=== PATIENT | female | born 1990 | race Caucasian/White ===

== ENCOUNTER 2016-08-25 16:41 | Emergency (ER) | payer OTHER ==
[2016-08-25 16:56] VITALS: BP 129/75; PULSE 82; TEMP 98.7; BMI 28.8
--- NOTE | 2016-08-25 16:59 | PDOC ---
History of Present Illness - General Chief Complaint: Cold Symptoms Stated Complaint: BRONCHITIS/EMPLOYEE Time Seen by Provider: 08/25/16 16:58 History Source: Patient Exam Limitations: No Limitations - History of Present Illness Initial Comments: 08/25/16 16:59 CHIEF COMPLAINT: Cough HISTORY OF PRESENT ILLNESS: This is a 26-year-old female with a history of PCOS , Trudy's thyroiditis, and reactive airway with URIs who presents complaining of 4 days of low-grade fevers/chills, throat pain, bodyaches/malaise , and cough productive of green sputum. She was prescribed moxifloxacin and prednisone on Tuesday, but has not shown any improvement. She has not travelled recently. She has had many sick contacts at work. She received the flu vaccine in May. OCP: Yes Smoking: Quit 3 years ago Vital signs on arrival are all within normal limits. PCP is Dr. Dotson. REVIEW OF SYSTEMS: GENERAL/CONSTITUTIONAL: Low grade fever/chills, bodyaches, malaise. No weakness. No weight change. HEAD, EYES, EARS, NOSE AND THROAT: Throat pain/painful swallowing. No ear pain. CARDIOVASCULAR: No chest pain or palpitations. RESPIRATORY: See HPI. GASTROINTESTINAL: No nausea, vomiting, diarrhea or constipation. GENITOURINARY: No dysuria, frequency, or change in urination. MUSCULOSKELETAL: No joint or muscle swelling or pain. No neck or back pain. SKIN: No rash or easy bruising. NEUROLOGIC: No headache, vertigo, loss of consciousness, or loss of sensation. HEMATOLOGIC/LYMPHATIC: No anemia, easy bleeding, or history of blood clots. ALLERGIC/IMMUNOLOGIC: No hives or skin allergy. No latex allergy. PHYSICAL EXAM: GENERAL: The patient is awake, alert, and fully oriented, in no acute distress. ENT: Pupils equal, round and reactive to light, extraocular movements intact, sclera anicteric, conjunctiva clear. Neck supple. LUNGS: Clear to auscultation bilaterally. Normal excursion. No respiratory distress or use of accessory muscles. CV: RRR, S1/S2, no MRG. Cap refill < 2 sec. ABDOMEN: Soft, non-distended, non-tender. EXTREMITIES: Normal range of motion, no edema. NEUROLOGICAL: Normal speech, normal gait. CN II-XII grossly intact. PSYCH: Normal mood, normal affect. SKIN: Warm, dry, normal turgor, no rashes or lesions noted. Past History - Past Medical History Allergies/Adverse Reactions: Allergies Allergy/AdvReac Type Severity Reaction Status Date / Time No Known Allergies Allergy Verified 08/25/16 16:56 Home Medications: Ambulatory Orders Cephalexin Monohydrate [Keflex -] 500 mg PO Q6H #28 capsule 08/04/15 Metoclopramide HCl [Reglan -] 10 mg PO TID #21 tablet 08/04/15 Anemia: No Asthma: No Cancer: No Thyroid Disease: Yes (Trudy's thyroiditis) Other medical history: PCOS/ - Surgical History Appendectomy: No - Family Disease History Family Disease History: Diabetes: Grandparents (mat uncle/GF colon, mat GF), [place] : Grandparents - Reproductive History Therapeutic (s) & number: No - Immunization History Immunization Up to Date: Yes - Psycho/Social/Smoking Cessation Hx Anxiety: No Suicidal Ideation: No Smoking Status: Yes Smoking History: Former smoker Have you smoked in the past 12 months: No Number of Cigarettes Smoked Daily: 0 If you are a former smoker, when did you quit?: 3 YRS Cigars Per Day: 0 Information on smoking cessation initiated: No Hx Alcohol Use: Yes (SOCIAL) Drug/Substance Use Hx: No Substance Use Type: None Hx Substance Use Treatment: No *Physical Exam - Vital Signs Last Vital Signs Temp Pulse Resp BP Pulse Ox 98.7 F 82 20 129/75 100 08/25/16 16:53 08/25/16 16:53 08/25/16 16:53 08/25/16 16:53 08/25/16 16:53 ED Treatment Course - RADIOLOGY Radiology Studies Ordered: Category Date Time Status CHEST PA & LAT [RAD] Stat Radiology 08/25/16 16:58 Ordered Medical Decision Making - Medical Decision Making 08/25/16 17:36 A/P: 26 year female with productive cough and low grade fevers, not improving on 4th day of moxifloxacin/prednisone. 1. CXR 2. Influenza swab 3. DuoNeb 4. Reassess 08/25/16 17:53 Flu neg Xray wet read: no infiltrate *DC/Admit/Observation/Transfer Diagnosis at time of Disposition: Bronchitis - Discharge Dispostion Disposition: HOME Condition at time of disposition: Stable Admit: No - Referrals Referrals: Francesco Dotson MD [Primary Care Provider] - 1 week - Patient Instructions Printed Discharge Instructions: DI for Acute Bronchitis Additional Instructions: You were seen today for cough and fevers/chills Your influenza swab was negative Preliminary read of your xray is normal; you will be contacted if the official read is different -Continue moxifloxacin and prednisone as previously prescribed -Add albuterol inhaler and take cough syrup as prescribed when you are not driving or working -Return here for difficulty breathing or any other concerning symptoms - Post Discharge Activity Work/School Note: Back to Work
[2016-08-25] MEDS ORDERED: ALBUTEROL SO4 2.5/IPRATROPIUM 0.5 INH SOL 3 ML VIAL.NEB. NEB ONE (17:05)
== END 2016-08-25 18:51 | disposition home or self-care (01) ==
LOC: JERFT 16:41
DX: J40 Bronchitis, not specified as acute or chronic (principal); E28.2 Polycystic ovarian syndrome; E06.3 Autoimmune thyroiditis
CPT/HCPCS: 71020-TC; 87804; 99281-25

== ENCOUNTER 2016-11-06 23:17 | Emergency (ER) | payer OTHER ==
[2016-11-06 23:29] VITALS: BP 119/83; PULSE 93; TEMP 98.1; BMI 29.2
[2016-11-06] MEDS ORDERED: KETOROLAC TROMETHAMINE 30 MG/1 ML VIAL IVPUSH ONE (23:43)
[2016-11-06] MEDS ORDERED: KETOROLAC TROMETHAMINE 30 MG/1 ML VIAL ONE (23:58)
[2016-11-07 00:03] LABS: BASOPHIL 0.8 % (0-2.0); EOSINOPHIL 0.7 % (0-4.5); MCH 27.9 pg (25.7-33.7); MCHC 33.6 g/dl (32.0-36.0); MEAN CELL VOLUME 83.1 fl (80-96); MEAN PLT VOLUME 7.9 fl (7.5-11.1); NEUTROPHILS 68.1 % (42.8-82.8); PLATELET COUNT 296 K/MM3 (134-434); RDW 13.8 % (11.6-15.6); WHITE BLOOD COUNT 6.1 K/mm3 (4.0-10.0)
[2016-11-07] MEDS ORDERED: ONDANSETRON 4 MG/2 ML VIAL IVPB ONE (00:05)
[2016-11-07 00:06] LABS: URINE APPEARANCE CLEAR; URINE BILIRUBIN NEGATIVE (NEGATIVE); URINE BLOOD NEGATIVE (NEGATIVE); URINE COLOR YELLOW; URINE GLUCOSE (UA) NEGATIVE (NEGATIVE); URINE KETONE NEGATIVE (NEGATIVE); URINE LEUK ESTERASE NEGATIVE (NEGATIVE); URINE NITRITE NEGATIVE (NEGATIVE); URINE PROTEIN NEGATIVE (NEGATIVE); URINE UROBILINOGEN NEGATIVE E.U./dl (0.2-1.0)
[2016-11-07] MEDS ORDERED: ONDANSETRON 4 MG/2 ML VIAL ONE (00:22)
[2016-11-07 00:30] LABS: ALBUMIN 4.3 g/dl (3.4-5.0); ALK PHOS 63 U/L (45-117); ANION GAP 8 (8-16); BILIRUBIN,TOTAL 0.3 mg/dL (0.2-1.0); CALCIUM 9.2 mg/dL (8.5-10.1); CO2 30 mmol/L (21-32); CREATININE 0.9 mg/dL (0.55-1.02); GLUCOSE,RANDOM 91 mg/dL (74-106); SGOT/AST 20 U/L (15-37); SGPT/ALT 29 U/L (12-78); TOT PROT 7.5 g/dl (6.4-8.2)
--- NOTE | 2016-11-07 00:49 | PDOC ---
History of Present Illness - General Chief Complaint: Pain Stated Complaint: LWR ABD PAIN Time Seen by Provider: 11/06/16 23:24 History Source: Patient Exam Limitations: No Limitations - History of Present Illness Initial Comments: 11/07/16 00:44 Patient is a 26-year-old female with history of PCO S who presents with atraumatic, severe right lower quadrant and right lower pelvic pain of several hours duration, radiating to the right flank, waxing waning severity, sharp, not associated with food. Patient complains of mild nausea, denies vomiting/ diarrhea/melena/bright red blood per rectum/dysuria/vaginal bleeding. Patient denies previous history of similar symptoms. Patient denies fever or chills. There is no history travel. REVIEW OF SYSTEMS CONSTITUTIONAL: No fever, no chills, no fatigue EYES: No visual changes ENT: No ear pain, no sore throat CARDIOVASCULAR: No chest pain, no palpitations RESPIRATORY: No cough, no SOB GI: + abdominal pain, + nausea, no vomiting, no constipation, no diarrhea GENITOURINARY: No dysuria, no frequency, no hematuria MUSKULOSKELETAL: No backpain, no joint pain, no myalgias SKIN: No rash NEURO: No headache EXAMINATION CONSTITUTIONAL: Well-appearing; well-nourished; in no apparent distress HEAD: Normocephalic; atraumatic EYES: PERRL; EOM intact ENMT: External appears normal; normal oropharynx NECK: Supple; non-tender; no cervical lymphadenopathy CARD: Normal S1, S2; no murmurs, rubs, or gallops RESP: Normal chest excursion with respiration; breath sounds clear and equal bilaterally; no wheezes, rhonchi, or rales ABD: Soft, non-distended; + mild right lower pelvic tender to deep palpation; no palpable organomegaly, no palpable hernias; no CVA tenderness bilaterally. EXT: Normal ROM in all four extremities; non-tender to palpation; distal pulses intact SKIN: Warm, dry, no rash NEURO: No focal neurological deficiencies. Past History - Past Medical History Allergies/Adverse Reactions: Allergies Allergy/AdvReac Type Severity Reaction Status Date / Time No Known Allergies Allergy Verified 11/06/16 23:26 Anemia: No Asthma: No Cancer: No Thyroid Disease: Yes (Trudy's thyroiditis) - Surgical History Appendectomy: No - Family Disease History Family Disease History: Diabetes: Grandparents (mat uncle/GF colon, mat GF), [place] : Grandparents - Reproductive History Is Patient Now?: No Therapeutic (s) & number: No - Immunization History Immunization Up to Date: Yes - Psycho/Social/Smoking Cessation Hx Anxiety: No Suicidal Ideation: No Smoking Status: Yes Smoking History: Former smoker Have you smoked in the past 12 months: No Number of Cigarettes Smoked Daily: 0 If you are a former smoker, when did you quit?: 3 years Cigars Per Day: 0 Information on smoking cessation initiated: No Hx Alcohol Use: Yes (SOCIAL) Drug/Substance Use Hx: No Substance Use Type: None Hx Substance Use Treatment: No *Physical Exam - Vital Signs Last Vital Signs Temp Pulse Resp BP Pulse Ox 98.1 F 93 H 18 119/83 100 11/06/16 23:18 11/06/16 23:18 11/06/16 23:18 11/06/16 23:18 11/06/16 23:18 ED Treatment Course - LABORATORY CBC & Chemistry Diagram: 11/06/16 23:43 11/06/16 23:50 - ADDITIONAL ORDERS Additional order review: Laboratory Results 11/06/16 11/06/16 23:50 23:50 Sodium 142 Potassium 4.3 Chloride 104 Carbon Dioxide 30 Anion Gap 8 BUN 11 D Creatinine 0.9 Creat Clearance w eGFR > 60 Random Glucose 91 Calcium 9.2 Total Bilirubin 0.3 D AST 20 ALT 29 Alkaline Phosphatase 63 D Total Protein 7.5 Albumin 4.3 D Urine Color Yellow Urine Appearance Clear Urine pH 7.0 D Ur Specific [place] 1.019 Urine Protein Negative Urine Glucose (UA) Negative Urine Ketones Negative Urine Blood Negative Urine Nitrite Negative Urine Bilirubin Negative Urine Urobilinogen Negative Ur Leukocyte Esterase Negative Urine HCG, Qual Negative 11/06/16 23:43 RBC 4.96 MCV 83.1 MCHC 33.6 RDW 13.8 MPV 7.9 Neutrophils % 68.1 Lymphocytes % 23.9 D Monocytes % 6.5 Eosinophils % 0.7 Basophils % 0.8 - RADIOLOGY Radiology Studies Ordered: Category Date Time Status TRANSVAGINAL ULTRASOUND US [US] Stat Ultrasound 11/07/16 23:44 Ordered - Medications Given in the ED: ED Medications Discontinued Medications Generic Name Dose Route Start Last Admin Trade Name Freq PRN Reason Stop Dose Admin Ketorolac Tromethamine 30 mg 11/06/16 23:43 11/07/16 00:00 Toradol Injection - IVPUSH 11/06/16 23:44 30 mg ONCE ONE Administration Ondansetron HCl 8 mg 11/07/16 00:05 11/07/16 00:24 Zofran Injection IVPB 11/07/16 00:06 8 mg ONCE ONE Administration Medical Decision Making - Medical Decision Making 11/07/16 01:31 Patient is a 26-year-old female who presents with atraumatic right lower pelvic pain. In the ER, patient is awake and alert, with right lower pelvic pain on deep palpation. CBC/CMP/UA within normal limit. Patient is UCG negative. Transvaginal ultrasound shows an anterior mural fibroids and a small left ovarian cyst. There is no evidence of torsion bilaterally. I do not suspect appendicitis at this time. Patient received Toradol IV and reports significant improvement in level of her pain. Patient is able to tolerate by mouth. 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 *DC/Admit/Observation/Transfer Diagnosis at time of Disposition: Cyst of left ovary Abdominal pain Qualifiers: Abdominal location: right lower quadrant Qualified Code(s): R10.31 - Right lower quadrant pain Uterine leiomyoma Qualifiers: Uterine leiomyoma location: intramural Qualified Code(s): D25.1 - Intramural leiomyoma of uterus - Discharge Dispostion Disposition: HOME Condition at time of disposition: Stable - Referrals Referrals: Francesco Dotson MD [Primary Care Provider] - Nilson Arrington MD [Staff Physician] - - Patient Instructions Printed Discharge Instructions: DI for Abdominal Pain-Adult, DI for Ovarian Cyst
== END 2016-11-07 01:42 | disposition home or self-care (01) ==
LOC: JER 23:17
PROC: 3E0333Z Introduction of Anti-inflammatory into Peripheral Vein, Percutaneous Approach (ICD-10-PCS; principal; 2016-11-06)
PROC: 3E033GC Introduction of Other Therapeutic Substance into Peripheral Vein, Percutaneous Approach (ICD-10-PCS; 2016-11-06)
DX: N83.292 Other ovarian cyst, left side (principal); D25.9 Leiomyoma of uterus, unspecified
CPT/HCPCS: 36415; 76830-TC; 80053; 81003; 84703; 85025; 87086; 99282-25

== ENCOUNTER 2016-11-30 03:10 | Emergency (ER) | payer OTHER ==
[2016-11-30 04:55] VITALS: BP 116/84; PULSE 75; TEMP 97.2; BMI 19.4
--- NOTE | 2016-11-30 04:56 | PDOC ---
Post Exposure HPI - General Chief Complaint: Blood/Body Fluid Exposure SJR Stated Complaint: EXPOSURE-EMPLOYEE Time Seen by Provider: 11/30/16 04:49 History Source: Patient Exam Limitations: No Limitations - History of Present Illness Timing: just prior to arrival Exposed Location: Right: Hand(s) Assessing Significant Risk PEP: Yes Blood Past History - Travel Traveled outside of the country in the last 30 days: No Close contact w/someone who was outside of country & ill: No - Past Medical History Allergies/Adverse Reactions: Allergies No Known Allergies Allergy (Verified 11/30/16 04:55) Home Medications: Ambulatory Orders Liraglutide [Saxenda] 2.4 mg IM DAILY 11/07/16 Phentermine HCl [Adipex-P] 37.5 mg PO DAILY 11/07/16 Surgical History: Yes: Noncontributory - Reproductive History LMP: 12/26/11 - Immunization History Immunizations Up to Date: Yes - Social History Smoking History: Yes Smoking Status: Never smoked Number of Ciarettes Per Day: 0 Cigars Per Day: 0 Alcohol Use: none Drug Use: none Review of Systems - Review of Systems Able to Perform ROS?: Yes Comments:: 11/30/16 05:21 CONSTITUTIONAL: Absent: fever, chills, diaphoresis, generalized weakness, malaise, loss of appetite HEENT: Absent: rhinorrhea, nasal congestion, throat pain, throat swelling, difficulty swallowing, mouth swelling, ear pain, eye pain, visual Changes CARDIOVASCULAR: Absent: chest pain, loss of consciousness, palpitations, irregular heart rate, peripheral edema RESPIRATORY: Absent: cough, shortness of breath, dyspnea with exertion, orthopnea, wheezing, stridor, hemoptysis GASTROINTESTINAL: Absent: abdominal pain, abdominal distension, nausea, vomiting, diarrhea, constipation, melena, hematochezia GENITOURINARY: Absent: dysuria, frequency, urgency, hesitancy, hematuria, flank pain, genital pain MUSCULOSKELETAL: Absent: myalgia, arthralgia, joint swelling SKIN: Absent: rash, itching, pallor HEMATOLOGIC/IMMUNOLOGIC: Absent: easy bleeding, easy bruising, lymphadenopathy, frequent infections ENDOCRINE: Absent: unexplained weight gain, unexplained weight loss, heat intolerance, cold intolerance NEUROLOGIC: Absent: headache, focal weakness or paresthesias, dizziness, unsteady gait, seizure, mental status changes, bladder or bowel incontinence PSYCHIATRIC: Absent: anxiety, depression, suicidal or homicidal ideation, hallucinations. Is the patient limited Brazilian proficient: No *Physical Exam - Vital Signs Last Vital Signs Temp Pulse Resp BP Pulse Ox 97.2 F L 75 18 116/84 98 11/30/16 04:47 11/30/16 04:47 11/30/16 04:47 11/30/16 04:47 11/30/16 04:47 - Physical Exam Comments: 11/30/16 05:21 GENERAL: Well developed, well nourished. Awake and alert. No acute distress. HEENT: Normocephalic, atraumatic. PERRLA, EOMI. No conjunctival pallor. Sclera are non- icteric. Moist mucous membranes. Oropharynx is clear. NECK: Supple. Full ROM. No JVD. Carotid pulses 2+ and symmetric, without bruits. No thyromegaly. No lymphadenopathy. CARDIOVASCULAR: Regular rate and rhythm. No murmurs, rubs, or gallops. Distal pulses are 2+ and symmetric. PULMONARY: No evidence of respiratory distress. Lungs clear to auscultation bilaterally. No wheezing, rales or rhonchi. ABDOMINAL: Soft. Non-tender. Non-distended. No rebound or guarding. No organomegaly. Normoactive bowel sounds. MUSCULOSKELETAL Normal range of motion at all joints. No bony deformities or tenderness. No CVA tenderness. EXTREMITIES: No cyanosis. No clubbing. No edema. No calf tenderness. SKIN: Warm and dry. Normal capillary refill. No rashes. No jaundice. NEUROLOGICAL: Alert, awake, appropriate. Cranial nerves 2-12 intact. No deficits to light touch and temperature in face, upper extremities and lower extremities. No motor deficits in the in face, upper extremities and lower extremities. Normoreflexic in the upper and lower extremities. Normal speech. Toes are down- going bilaterally. Gait is normal without ataxia. PSYCHIATRIC: Cooperative. Good eye contact. Appropriate mood and affect. 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 Patient states while helping the medical staff assess, control active bleeding, suture repair: She was sprayed with the patient's blood onto her arms, legs and chest area. *DC/Admit/Observation/Transfer Diagnosis at time of Disposition: Exposure to blood or body fluid - Discharge Dispostion Disposition: HOME Condition at time of disposition: Good Admit: No - Referrals Referrals: Francesco Dotson MD [Primary Care Provider] - - Patient Instructions Printed Discharge Instructions: How to Handle Body Fluid Exposure -- Healthcare Worker - Post Discharge Activity Work/School Note: Back to Work
--- NOTE | 2016-11-30 05:10 | PDOC ---
*Physical Exam - Vital Signs Last Vital Signs Temp Pulse Resp BP Pulse Ox 97.2 F L 75 18 116/84 98 11/30/16 04:47 11/30/16 04:47 11/30/16 04:47 11/30/16 04:47 11/30/16 04:47 ED Treatment Course - LABORATORY CBC & Chemistry Diagram: 11/30/16 05:11 11/30/16 05:11 Medical Decision Making - Medical Decision Making 11/30/16 05:10 agree with care from RAJWINDER Pan *DC/Admit/Observation/Transfer Diagnosis at time of Disposition: Exposure to blood or body fluid - Discharge Dispostion Disposition: HOME Condition at time of disposition: Good - Referrals Referrals: Francesco Dotson MD [Primary Care Provider] - - Patient Instructions Printed Discharge Instructions: How to Handle Body Fluid Exposure -- Healthcare Worker - Post Discharge Activity Work/School Note: Back to Work
[2016-11-30 05:23] LABS: BASOPHIL 0.8 % (0-2.0); EOSINOPHIL 1.1 % (0-4.5); MCH 27.9 pg (25.7-33.7); MCHC 33.3 g/dl (32.0-36.0); MEAN CELL VOLUME 83.7 fl (80-96); MEAN PLT VOLUME 7.9 fl (7.5-11.1); NEUTROPHILS 65.2 % (42.8-82.8); PLATELET COUNT 286 K/MM3 (134-434); RDW 13.9 % (11.6-15.6); WHITE BLOOD COUNT 5.8 K/mm3 (4.0-10.0)
[2016-11-30 05:54] LABS: ALBUMIN 4.3 g/dl (3.4-5.0); ANION GAP 12 (8-16); BILIRUBIN,TOTAL 0.5 mg/dL (0.2-1.0); CALCIUM 8.8 mg/dL (8.5-10.1); CHOLESTEROL 186 mg/dL (50-200); CO2 25 mmol/L (21-32); COCKROFT - GAULT 85.255; CREATININE 0.9 mg/dL (0.55-1.02); GLUCOSE,RANDOM 108 mg/dL (74-106); LDH 190 U/L (84-246); PHOSPHOROUS 3.5 mg/dL (2.5-4.9); SGOT/AST 22 U/L (15-37); SGPT/ALT 32 U/L (12-78); TOT PROT 7.5 g/dl (6.4-8.2); URIC ACID 4.1 mg/dL (2.6-7.2)
[2016-11-30 05:55] LABS: ALK PHOS 66 U/L (45-117)
[2016-11-30 06:01] LABS: HIV 1 & 2 AB NEGATIVE; HIV 1 AGp24 NEGATIVE
[2016-12-01 06:06] LABS: HEP B SURFACE AB Reactive (.)
== END 2016-11-30 06:14 | disposition home or self-care (01) ==
LOC: JER 03:10
DX: Z77.21 Contact with and (suspected) exposure to potentially hazardous body fluids (principal); X58.XXXA Exposure to other specified factors, initial encounter; Y93.F9 Activity, other caregiving; Y92.238 Other place in hospital as the place of occurrence of the external cause; Y99.0 Civilian activity done for income or pay
CPT/HCPCS: 36415; 80053; 82465; 82977; 83615; 84100; 84478; 84550; 85025; 86704; 86706; 87340; 87389; 99281-25

== ENCOUNTER 2017-02-24 17:02 | Emergency (ER) | payer OTHER ==
[2017-02-24 17:08] VITALS: BP 151/99; PULSE 93; TEMP 98.2; BMI 28.4
[2017-02-24] MEDS ORDERED: traMADol HCL 50 MG TABLET PO ONE (17:49)
--- NOTE | 2017-02-24 17:53 | PDOC ---
History of Present Illness - General Chief Complaint: Injury Stated Complaint: LACERATION/EMPLOYEE Time Seen by Provider: 02/24/17 17:20 History Source: Patient Exam Limitations: No Limitations - History of Present Illness Initial Comments: CHIEF COMPLAINT: 27 y/o afebrile female with finger pain s/p trauma. HISTORY OF PRESENT ILLNESS: The patient got the 2nd and 3rd digits of her left hand stuck in her garage door this evening. She now has bleeding from both finger tips and pain. She denies decreased ROM and numbness/tingling. Vital signs on arrival are within normal limits. REVIEW OF SYSTEMS: GENERAL/CONSTITUTIONAL: No fever/chills. No weakness. No weight change. HEAD, EYES, EARS, NOSE AND THROAT: No change in vision. No ear pain or discharge. No sore throat. MUSCULOSKELETAL: +left finger tip pain and bleeding. No neck or back pain. SKIN: No rash or easy bruising. NEUROLOGIC: No headache, vertigo, loss of consciousness, or loss of sensation. PHYSICAL EXAM: VITAL_SIGNS: within normal limits GENERAL_APPEARANCE: alert, cooperative, moderate obvious discomfort. MENTAL_STATUS: speech clear, oriented X 3, responds appropriately to questions. NEURO: motor intact and sensory intact in injured extremity. EXTREMITIES: Tip of nail bed of 3rd digit of left hand with laceration through it and hematoma on tip of finger. distal nail bed of 2nd digit with crack through it with very minimal active bleeding and adhered to the nail bed. Full flexion and extension of MCP, PIP and DIP of affected digits. Sensory intact in affected digits. SKIN: warm, dry, good color. Past History - Past Medical History Allergies/Adverse Reactions: Allergies Allergy/AdvReac Type Severity Reaction Status Date / Time No Known Allergies Allergy Verified 02/24/17 17:05 Home Medications: Ambulatory Orders Liraglutide [Saxenda] 2.4 mg IM DAILY 11/07/16 Phentermine HCl [Adipex-P] 37.5 mg PO DAILY 11/07/16 Sulfamethoxazole/Trimethoprim [Bactrim Ds -] 1 tab PO BID #14 tablet 02/24/17 Tramadol HCl 50 mg PO Q6H #20 tablet MDD 6 02/24/17 Anemia: No Asthma: No Cancer: No Thyroid Disease: Yes (Trudy's thyroiditis) - Surgical History Appendectomy: No - Family Disease History Family Disease History: Diabetes: Grandparents (mat uncle/GF colon, mat GF), [place] : Grandparents - Reproductive History Therapeutic (s) & number: No - Immunization History Immunization Up to Date: Yes - Psycho/Social/Smoking Cessation Hx Anxiety: No Suicidal Ideation: No Smoking Status: Yes Smoking History: Never smoked Have you smoked in the past 12 months: No Number of Cigarettes Smoked Daily: 0 If you are a former smoker, when did you quit?: 3 YRS Cigars Per Day: 0 Hx Alcohol Use: No Drug/Substance Use Hx: No Substance Use Type: None Hx Substance Use Treatment: No *Physical Exam - Vital Signs Last Vital Signs Temp Pulse Resp BP Pulse Ox 98.2 F 93 H 19 151/99 100 02/24/17 17:05 02/24/17 17:05 02/24/17 17:05 02/24/17 17:05 02/24/17 17:05 ED Treatment Course - RADIOLOGY Radiology Studies Ordered: Category Date Time Status HAND- LEFT [RAD] Stat Radiology 02/24/17 17:23 Taken Medical Decision Making - Medical Decision Making A/P: 27 y/o female with nail bed injury to 2nd and 3rd digit of left hand. The patient cleaned her wounds copiously prior to coming to the ER and is UTD on tetanus. Plan is as follows: 1. xray to r/o tuft fx 2. PO tramadol Prior to xray performed digital block on patient's 2nd and 3rd digits with 1% lidocaine without epi (Approximately 6mL). Xray left fingers IMPRESSION: No gross bone or soft tissue abnormality is seen. The broken tip of the 3rd digit's nail bed was removed. No underlying laceration that needs repair. Non-adherent dressing applied to the finger and it was wrapped with gauze. Since the tip of the 2nd digit's nail bed was cracked but not pulled away from the nail bed it was left intact. There is no hematoma under this nail. The patient was instructed that this will most likely grow out and fall off. bacitracin applied and it was covered and wrapped along with the 3rd digit. The patient was sent and Rx for tramadol for pain, was instructed to keep the wounds clean and dry and was sent prophylactic Bactrim and instructed to take if she develops sign of infection, including fever, redness or streaking. The patient was instructed to return to the ER with any worsening or concerning symptoms. The patient verbalizes understanding of all instructions, has no further questions and is awaiting discharge. *DC/Admit/Observation/Transfer Diagnosis at time of Disposition: Nail bed injury - Prescriptions Prescriptions: Sulfamethoxazole/Trimethoprim [Bactrim Ds -] 1 tab PO BID #14 tablet Tramadol HCl 50 mg PO Q6H #20 tablet MDD 6 - Patient Instructions Printed Discharge Instructions: DI for Nail Bed Injury Additional Instructions: Discharge Instructions: -Keep wound clean and dry for 24 hours -After 24 hours keep wound clean and covered -A prescription for Tramadol was sent to your pharmacy; please take for pain if needed; it may cause drowsiness -A prescription was sent to your pharmacy; if you develop redness, streaking or fever please start taking the antibiotics. -Return to the ER with any worsening or concerning symptoms. - Post Discharge Activity Work/School Note: Back to Work
[2017-02-24] MEDS ORDERED: traMADol HCL 50 MG TABLET ONE (17:57)
== END 2017-02-24 17:57 | disposition home or self-care (01) ==
LOC: JERFT 17:02
DX: S67.191A Crushing injury of left index finger, initial encounter (principal); S67.193A Crushing injury of left middle finger, initial encounter; W23.0XXA Caught, crushed, jammed, or pinched between moving objects, initial encounter; Y93.89 Activity, other specified; Y92.89 Other specified places as the place of occurrence of the external cause
CPT/HCPCS: 73130-TC-LT; 99281-25

== ENCOUNTER 2017-08-19 10:02 | Day surgery (SDC) | payer SELFPAY ==
[2017-08-17 10:57] VITALS: BMI 29.6
[2017-08-19 10:31] LABS: BASO % 1.4 % (0-2.0); EOS % 0.9 % (0-4.5); HEMATOCRIT 41.9 % (32.4-45.2); HEMOGLOBIN 13.7 GM/dL (10.7-15.3); LYMPH % 36.5 % (8-40); MCH 26.8 pg (25.7-33.7); MCHC 32.7 g/dl (32.0-36.0); MEAN CELL VOLUME 82.2 fl (80-96); MEAN PLT VOLUME 7.7 fl (7.5-11.1); MONO % 7.8 % (3.8-10.2); NEUT % 53.4 % (42.8-82.8); PLATELET COUNT 251 K/MM3 (134-434); RDW 15.5 % (11.6-15.6); WHITE BLOOD COUNT 4.7 K/mm3 (4.0-10.0)
[2017-08-19] MEDS ORDERED: DEXAMETHASONE SOD PHOSPHATE 4 MG/1 ML VIAL ONE (11:49)
[2017-08-19] MEDS ORDERED: PROPOFOL 20 ML ONE (11:49)
[2017-08-19] MEDS ORDERED: SUCCINYLCHOLINE CHLORIDE 200 MG/10 ML VIAL ONE (11:49)
[2017-08-19] MEDS ORDERED: fentaNYL CITRATE 250 MCG/5 ML VIAL ONE (11:49)
[2017-08-19] MEDS ORDERED: ePHEDrine SULFATE 50 MG/1 ML AMPULE ONE (11:49)
[2017-08-19] MEDS ORDERED: MIDAZOLAM HCL 2 MG/2 ML SINGLE DOSE VIAL ONE ×2 (11:50)
[2017-08-19] MEDS ORDERED: ROCURONIUM BROMIDE 50 MG/5 ML VIAL ONE ×2 (11:50→13:04)
[2017-08-19] MEDS ORDERED: EPINEPHrine/PF 1 MG/1 ML (1:1,000) AMPULE ONE (11:50)
[2017-08-19] MEDS ORDERED: LIDOCAINE HCL/PF 2% SDV 5ML VIAL ONE (11:51)
[2017-08-19] MEDS ORDERED: LIDOCAINE HCL 1%, 10 MG/ML (20ML VIAL) ONE (11:51)
[2017-08-19] MEDS ORDERED: ceFAZolin SODIUM 1 GM VIAL ONE (11:51)
--- NOTE | 2017-08-19 12:19 | HP ---
Admitting History and Physical - Admission Chief Complaint: Lipodysrophy generalized mostly abdomen. History of Present Illness: 27 year old 5ft 8 young woman states she has tried exercise diet control but unable to loose fat mostly back and abdomen Patient medically has Trudy disease . General she states in good health. 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: Other (Hashimotos disease) ...LMP: 08/08/17 ...LMP Comment: IRREGULAR WITH IUD - Past Surgical History Past Surgical History: Yes: None - Smoking History Smoking history: Former smoker (Stopped 3 years ago, never heavy smoker) Have you smoked in the past 12 months: No Aproximately how many cigarettes per day: 0 If you are a former smoker, when did you quit?: 3 YRS - Alcohol/Substance Use Hx Alcohol Use: Yes (OCCAS) Home Medications - Allergies Allergies/Adverse Reactions: Allergies Allergy/AdvReac Type Severity Reaction Status Date / Time No Known Allergies Allergy Verified 08/19/17 10:52 - Home Medications Home Medications: Ambulatory Orders Thyroid [Cabool Thyroid] 120 mg PO DAILY 08/17/17 Physical Examination Vital Signs: Vital Signs Temperature 98.0 F 08/19/17 10:49 Pulse Rate 75 08/19/17 10:49 Respiratory Rate 20 08/19/17 10:49 Blood Pressure 127/67 08/19/17 10:49 O2 Sat by Pulse Oximetry (%) 97 08/19/17 10:49 Labs: CBC, BMP 08/19/17 10:26 Assessment/Plan BMI 29.6kg/m2 Soft bulge mostly flanks, lower abdomen worse, including back rolls and upper hip Plan : Liposuction back and abdomen including flanks Generally patient is in good health
[2017-08-19] MEDS ORDERED: ACETAMINOPHEN INJECTION 100 ML IVPB ONE (12:29)
[2017-08-19] MEDS ORDERED: ceFAZolin SODIUM 1 GM VIAL IVPB ONE (13:23)
[2017-08-19] MEDS ORDERED: DESFLURANE GAS 240 ML BOTTLE IH ONE (15:48)
[2017-08-19] MEDS ORDERED: ONDANSETRON 4 MG/2 ML VIAL IVPUSH PRN (16:49)
[2017-08-19] MEDS ORDERED: oxyCODONE HCL 5 MG TABLET PO PRN (16:49)
[2017-08-19] MEDS ORDERED: PROMETHAZINE HCL 25 MG/1 ML VIAL IVPUSH PRN (16:49)
[2017-08-19] MEDS ORDERED: LACTATED RINGERS SOLUTION 1,000 ML IV SCH (17:00)
[2017-08-19] MEDS ORDERED: ACETAMINOPHEN 1000 MG/100 ML VIAL (NON FORMULARY) IVPB PRN (17:18)
[2017-08-19] MEDS ORDERED: ONDANSETRON 4 MG/2 ML VIAL ONE (17:28)
[2017-08-19] MEDS ORDERED: PROMETHAZINE HCL 25 MG/1 ML VIAL ONE (17:38)
--- NOTE | 2017-08-19 18:08 | OP ---
DATE OF OPERATION: 08/19/2017 PREOPERATIVE DIAGNOSIS: Lipodystrophy of the abdomen and back. POSTOPERATIVE DIAGNOSIS: Lipodystrophy of the abdomen and back. PROCEDURE: Liposuction, suction-assisted lipectomy, back, lower abdomen, and chest. SURGEON: Joan Hernández MD ANESTHESIOLOGIST: Dr. Shirley ANESTHESIA: General, subcutaneous infiltration of 5 L of lactated Ringer's with 30 mL 1% lidocaine in each 1000 mL with 1 mL of epinephrine. Total fluids used were 5 L. DESCRIPTION OF PROCEDURE: Patient was brought to the operating room after markings had been carried out in the holding area. Patient has been seen in the office, and the procedure, risks, and complications. Patient was transferred to the stretcher. At this time, patient was intubated while on the stretcher and transferred over to the operating table in a prone position. Care was taken to protect all the bony prominences including axilla for brachial plexus. Skin was prepped with Betadine and then draped in a standard aseptic manner. Infiltration was carried out using Simpson machine. A total of 2 L was injected in subcutaneous tissue. Small incisions of 0.5 mm were made using a 15-scalpel blade. After waiting for 15 minutes for the anesthetic effect, using a 4-mm cannula, liposuction was carried out in the intermediate and deep layers. Liquid fat was aspirated. A total of 2 L was aspirated from the back, both from the upper as well as the lower. Almost equal amounts were taken from each side. Incisions were then closed with 5-0 Vicryl deep sutures. Patient was then flipped over, back onto the stretcher and then transferred to the operating room in a supine position. New drapes were then applied. Care was taken for all the bony prominences. Same fluid was then injected in the lower abdomen and the chest. Most of the liposuction was carried out below the umbilicus around the fold. After waiting for 15 minutes, using a 4-mm Ofelia cannula, at this time, liposuction was carried out in the intermediate and deep layers. Liquid fat was aspirated. A total of 2 L was aspirated from the upper and the lower abdomen, almost equal amounts on each side. Incisions were then again closed in a similar manner using Vicryl. Dressings were applied consisting of 2 x 2's and Tegaderm, followed by fluffs using Kerlix. Compression was applied by an abdominal binder was applied in a SCD manner. Patient tolerated the entire procedure well and was sent to recovery room in a satisfactory condition. She was given 2 g of Ancef before starting the procedure. Timeout in a standard procedure had been carried out on the patient. Most of the fat which has been suctioned was liquid in nature. Some amount of blood-tinged fluid was also noted, but no active bleeding was noted. Patient will be kept for satellite observation for 23 hours. She was sent in recovery room in a stable condition. Total time period was 4 hours of surgery. JOAN HERNÁNDEZ M.D. [id number]
[2017-08-19] MEDS: SODIUM CHLORIDE 1,000 ML IV SCH (19:25)
[2017-08-20] MEDS: SODIUM CHLORIDE 1,000 ML IV SCH (03:33)
[2017-08-20 08:46] LABS: BASO % 0.4 % (0-2.0); EOS % 0.1 % (0-4.5); HEMATOCRIT 33.4 % (32.4-45.2); HEMOGLOBIN 10.9 GM/dL (10.7-15.3); LYMPH % 22.5 % (8-40); MCH 26.9 pg (25.7-33.7); MCHC 32.6 g/dl (32.0-36.0); MEAN CELL VOLUME 82.5 fl (80-96); MEAN PLT VOLUME 8.2 fl (7.5-11.1); PLATELET COUNT 217 K/MM3 (134-434); RBC 4.04 M/mm3 (3.60-5.2); RDW 15.2 % (11.6-15.6); WHITE BLOOD COUNT 8.8 K/mm3 (4.0-10.0)
[2017-08-20 09:18] VITALS: BP 121/70; PULSE 94; TEMP 98.9
== END 2017-08-20 12:08 | disposition home or self-care (01) ==
LOC: JASU-SURG 10:02 → J6S 20:05 → JASU-SURG 08-20 12:08
PROVIDERS: ATTEND Plastic Surgery
PROC: 0J073ZZ Alteration of Back Subcutaneous Tissue and Fascia, Percutaneous Approach (ICD-10-PCS; 2017-08-19)
PROC: 0J063ZZ Alteration of Chest Subcutaneous Tissue and Fascia, Percutaneous Approach (ICD-10-PCS; 2017-08-19)
PROC: 0J083ZZ Alteration of Abdomen Subcutaneous Tissue and Fascia, Percutaneous Approach (ICD-10-PCS; principal; 2017-08-19 12:00)
DX: E88.1 Lipodystrophy, not elsewhere classified (principal); E65 Localized adiposity
CPT/HCPCS: 36415; 84703; 85025; 94760